=== PATIENT | female | born 1995 ===

== ENCOUNTER 2019-02-02 13:34 | Emergency (ER) | payer OTHER ==
[2019-02-02] MEDS: Sodium Chloride 0.9% 1,000 ML IV SCH ×4 (14:46→18:27)
--- NOTE | 2019-02-02 15:08 | ED PDOC ---
HPI: Influenza Time Seen by Provider: 02/02/19 14:04 Chief Complaint: Flu-like Symptoms Chief Complaint (Provider): Flu-like Symptoms History Per: Patient, Family () Exam Limitations: no limitations Onset/Duration Of Symptoms: Days (x2) Additional complaint(s):: Patient is a 23 y/o female with no significant PMHx who presents to the ED for evaluation of a fever, nasal congestion, cough, body aches, and headaches for the past two days. Patient also reports experiencing nausea, stomach pain, and one episode of vomiting today. Patient has been taking Tylenol and Theraflu with no relief. Patient last took Tylenol this morning at 6:00. Patient went to urgent care today and tested positive for flu and was advised to go to ED for further evaluation due to vomiting and dehydration. Pt has felt weak as well that her had to carry her. Denies difficulty breathing, recent travel, known sick contacts, chest pain, urinary symptoms. Of note, patient is currently on her period. PCP: None Provided Past Medical History Reviewed: Historical Data, Nursing Documentation, Vital Signs Vital Signs: Last Vital Signs Temp 102.4 F H 02/02/19 13:46 Pulse 120 H 02/02/19 13:46 Resp 18 02/02/19 13:46 BP 107/74 02/02/19 13:46 Pulse Ox 100 02/02/19 13:46 - Medical History PMH: No Chronic Diseases Other PMH: ovarian cyst - Surgical History Surgical History: - Family History Family History: States: No Known Family Hx - Social History Current smoker - smoking cessation education provided: No Alcohol: None Drugs: Denies - Home Medications Home Medications: Ambulatory Orders Medication Instructions Recorded Acetaminophen [8 Hour] 650 mg PO Q8 PRN #20 tablet.er 02/02/19 Ibuprofen [Ibu] 400 mg PO Q6 PRN #20 tablet 02/02/19 Ondansetron ODT [Zofran ODT] 4 mg PO TID PRN #12 odt 02/02/19 Pseudoephedrine HCl [Sudafed] 60 mg PO Q6 PRN #16 tablet 02/02/19 - Allergies Allergies/Adverse Reactions: Allergies Allergy/AdvReac Type Severity Reaction Status Date / Time No Known Allergies Allergy Verified 02/02/19 13:48 Review of Systems ROS Statement: Except As Marked, All Systems Reviewed And Found Negative Constitutional: Positive for: Fever, Other (body aches) ENT: Positive for: Nose Congestion Respiratory: Positive for: Cough Gastrointestinal: Positive for: Nausea, Vomiting, Abdominal Pain Physical Exam - Reviewed Nursing Documentation Reviewed: Yes Vital Signs Reviewed: Yes - Physical Exam Comments: GENERAL APPEARANCE: Patient is awake, alert, oriented x 3, in obvious moderate discomfort. SKIN: hot to touch, dry; (-) cyanosis, (-) rash. (-) Decubitus Ulcer EYES: (-) conjunctival pallor, (-) scleral icterus, (-) conjunctival hemorrhage. ENMT: Mucous membranes moist. TMs: (-) erythema. Airway patent: (-) stridor. (-)trismus Pharynx: (-) erythema, (-) exudate (-) airway obstruction (-)uvula deviation Nose: audible nasal congestion. NECK: (-) tenderness, (-) stiffness, (-) meningismus, (-) lymphadenopathy. CHEST AND RESPIRATORY: (-) rales, (-) rhonchi, (-) wheezes; breath sounds equal bilaterally. (+) dry cough ABDOMEN AND GI: Soft; (+) diffuse tenderness, (-) guarding; (-) organomegaly; (-) mass; (-) CVA tenderness. Normal bowel sounds. EXTREMITIES: (-) deformity; (-) cellulitis, (-) lymphangitis; (-) subungual hemorrhage; (-) edema. NEURO AND PSYCH: Mental status as above; (-) focal findings. Medical Decision Making Medical Decision Making: Time: 1410 Impression: Flu; Possible Dehydration and rule out pneumonia Plan: BMP HCG, Qualitative Serum Urine CBC CXR IV Fluids to Hydrate Toradol 30 mg IVP Zofran 4 mg IVP IV Insertion UA Reevaluation 17:00 pt's temp has come down, she states she is feeling a little better but continues with mild headache, her pulse is improved, BP is slightly low though she is petitie, will give another 1L IVF and sudafed, then re eval 18:35 re eval pt is awake and feeling much better, ambulating with steady gait, headache improved, pt continues with mild tachycardia 108, pt flu+, discussed with pt option of staying in observation, she would prefer to go home, rest and drink fluids pt is tolerating PO with no problems, neurologically intact, lungs are clear, no respiratory distress, stable for dc Discussed results, diagnosis, treatment, return precautions and f/u with pt who is understanding, in agreement and stable for dc Scribe Attestation: Documented by Rodri Aceves, acting as a scribe for Clay Terrazas PA-C Provider Scribe Attestation: All medical record entries made by the Scribe were at my direction and personally dictated by me. I have reviewed the chart and agree that the record accurately reflects my personal performance of the history, physical exam, medical decision making, and the department course for this patient. I have also personally directed, reviewed, and agree with the discharge instructions and disposition. - Laboratory Results Result Diagrams: 02/02/19 14:57 02/02/19 14:57 - ECG ECG Rhythm: Positive for: Normal QRS, Sinus Rhythm. Negative for: ST/T Changes Interpretation Of ECG: No arrythmia Rate: 115 O2 Sat by Pulse Oximetry: 100 Disposition - Clinical Impression Clinical Impression: Influenza - Patient ED Disposition Is Patient to be Admitted: No Counseled Patient/Family Regarding: Studies Performed, Diagnosis, Need For Followup, Rx Given - Disposition Referrals: your, doctor [Other] Disposition: Routine/Home Disposition Time: 18:44 Condition: IMPROVED Additional Instructions: Rest, drink plenty of fluids to stay hydrated - water, gatorade. Alternate between Tylenol and Ibuprofen for fever and pain. Take medications as prescribed. Return to ED for new or worsening symptoms Thank you for letting us take care of you today. You were treated for flu. The emergency medical care you received today was directed at your acute symptoms. If you were prescribed any medication, please fill it and take as directed. It may take several days for your symptoms to resolve. Return to the Emergency Department if your symptoms worsen, do not improve, or if you have any other problems. Please contact your doctor in 2 days for re-evaluation and follow up / or call one of the physicians/clinics you have been referred to that are listed on the Patient Visit Information form that is included in your discharge packet. Bring any paperwork you were given at discharge with you along with any medications you are taking to your follow up visit. Our treatment cannot replace ongoing medical care by a primary care provider (PCP) outside of the emergency department. Prescriptions: Acetaminophen [8 Hour] 650 mg PO Q8 PRN #20 tablet.er PRN Reason: Fever >100.4 F Ibuprofen [Ibu] 400 mg PO Q6 PRN #20 tablet PRN Reason: Pain, Moderate (4-7) Ondansetron ODT [Zofran ODT] 4 mg PO TID PRN #12 odt PRN Reason: Nausea/Vomiting Pseudoephedrine HCl [Sudafed] 60 mg PO Q6 PRN #16 tablet PRN Reason: Nasal Congestion Instructions: Flu, Adult (DC) Forms: [facility] (Georgian) Print Language: SENEGALESE - POA Present On Arrival: None
[2019-02-02 15:33] LABS: BLOOD UREA NITROGEN 6 mg/dl (7-17); CALCIUM 8.6 mg/dL (8.4-10.2); GFR NON-AFRICAN AMERICAN > 60
[2019-02-02 15:34] LABS: BASO % 0.2 % (0.0-2.0); HEMOGLOBIN 12.4 g/dL (12.0-16.0); LYMPH # 0.4 K/uL (1.0-4.3); LYMPH % 7.5 % (20.0-40.0); MEAN CELL VOLUME 87.4 fl (81.0-99.0); MEAN CORPUSCULAR HEMOGLOBIN 29.3 pg (27.0-31.0); MEAN CORPUSCULAR HGB CONC 33.5 g/dL (33.0-37.0); MONO # 0.4 K/uL (0.0-0.8); MONO % 8.7 % (0.0-10.0); NEUT % 83.6 % (50.0-75.0); NRBC % 0.1 % (0.0-0.0); PLATELET COUNT 201 K/uL (130-400); RBC 4.24 Mil/uL (3.80-5.20); WHITE BLOOD COUNT 4.7 K/uL (4.8-10.8)
[2019-02-02 16:05] LABS: SQUAMOUS EPITHIAL 6 /hpf (0-5); URINE BILIRUBIN NEGATIVE (NEGATIVE); URINE BLOOD NEGATIVE (NEGATIVE); URINE CLARITY SLIGHTY-CLOUDY (Clear); URINE COLOR YELLOW (YELLOW); URINE GLUCOSE (UA) 50 mg/dL (NEGATIVE); URINE LEUKOCYTE ESTERASE NEG Leu/uL (Negative); URINE PROTEIN NEGATIVE (NEGATIVE); URINE UROBILINOGEN 0.2-1.0 mg/dL (0.2-1.0)
--- NOTE | 2019-02-02 17:01 | RAD ---
Date of service: 02/02/2019 HISTORY: cough fever COMPARISON: No prior. TECHNIQUE: Chest PA and lateral views FINDINGS: LUNGS: No active pulmonary disease. PLEURA: No significant pleural effusion identified. No pneumothorax apparent. CARDIOVASCULAR: No aortic atherosclerotic calcification present. Normal cardiac size. No pulmonary vascular congestion. OSSEOUS STRUCTURES: No significant abnormalities. VISUALIZED UPPER ABDOMEN: Normal. OTHER FINDINGS: None. IMPRESSION: No active disease.
[2019-02-02 17:25] LABS: BANDS 2 % (0-2); EOSINOPHIL 1 % (0-7); LYMPHOCYTE 7 % (20-50); MONOCYTE 9 % (0-10); NEUTROPHIL 81 % (42-75); PLATELET ESTIMATE NORMAL (NORMAL); TOTAL CELLS COUNTED 100
[2019-02-02 17:26] LABS: ANISOCYTOSIS SLIGHT; HYPOCHROMIC SLIGHT
[2019-02-02 18:34] VITALS: RESP 18; TEMP 98.2
[2019-02-02 18:42] VITALS: O2SAT 100
[2019-02-02 19:07] VITALS: BP 108/60
[2019-02-02 19:51] VITALS: PULSE 115
--- NOTE | 2019-02-03 11:26 | CARD ---
APPROVED REPORT Date of service: 02/02/2019 EKG Measurement Heart [id number] <Conclusion> Sinus tachycardia Otherwise normal ECG
== END 2019-02-02 19:05 | disposition home or self-care (01) ==
LOC: H.ER 13:34
DX: J11.1 Influenza due to unidentified influenza virus with other respiratory manifestations (principal); R00.0 Tachycardia, unspecified; N83.209 Unspecified ovarian cyst, unspecified side; R09.81 Nasal congestion
CPT/HCPCS: 71046; 80048; 81003; 84703; 85025; 93005; 96374; 96375; 99284; J1885; J2405; J7030